=== PATIENT | male | born 2000 | race Hispanic/Latino ===

== ENCOUNTER 2023-04-12 06:02 | Emergency (ER) | payer SELFPAY ==
[~2023-04-12] VITALS: Ht 167.6 cm; Wt 79.0 kg
[~2023-04-12 06:02] MED LIST: PERCOCET 5/325M1 TAB PO
[2023-04-12] MEDS ORDERED: VOLTAREN75 MG PO (06:52)
[2023-04-12 07:09] VITALS: BP 146/92
== END 2023-04-12 07:13 | disposition home or self-care (01) | DRG 563 ==
LOC: ED 06:02
DX: S39.012A Strain of muscle, fascia and tendon of lower back, initial encounter (principal); X58.XXXA Exposure to other specified factors, initial encounter

== ENCOUNTER 2023-07-08 11:25 | Emergency (ER) | payer SELFPAY ==
[~2023-07-08] VITALS: Ht 167.6 cm; Wt 77.3 kg
[2023-07-08] VITALS (10 sets, daily range): BP systolic 94–140; BP diastolic 47–123
[~2023-07-08 11:25] MED LIST changes: +VOLTAREN75 MG PO
== END 2023-07-08 14:13 | disposition home or self-care (01) | DRG 866 ==
LOC: ED 11:25
DX: B34.9 Viral infection, unspecified (principal); Z20.822 Contact with and (suspected) exposure to COVID-19